=== PATIENT | male | born 1975 | race Caucasian/White ===

== ENCOUNTER → 2018-07-08 13:04 | Outpatient (CLI) | payer OTHER, SELFPAY ==
--- NOTE | 2018-07-08 | DI.MRI.S_ITS ---
PROCEDURE: MR ORBITS FACE NECK WO/W CON INDICATIONS: LEFT NECK AND LATERAL TONGUE PAIN TECHNIQUE: Sagittal/axial/coronal T1 spin echo and STIR. After the administration of contrast, axial/coronal/sagittal T1 fast spin echo with fat saturation through the neck. COMPARISON: None. FINDINGS: Image quality: Excellent. Lymph nodes: No enlarged nodes are seen throughout the neck. Vessels: Visualized vasculature appears normal, with nancy flow voids and enhancement. Neck spaces: In this patient with this given history, scrutiny is given to the left tongue. To the limits of this study, no masses or abnormal enhancement can be involving the tongue on either side. The oropharynx, nasopharynx and pharynx are unremarkable, without mucosal lesions seen. Vocal cords, false vocal cords, pyriform sinuses, epiglottis, vallecula, and all appear normal. Extramucosal spaces of the neck also appear unremarkable. Glands: The parotid glands appear normal. The submandibular glands are asymmetric, with the left side mildly prominent and the right side atrophic. Thyroid gland demonstrates no significant MRI abnormality. Miscellaneous: Visualized brain and orbits appear normal. Lung apices appear clear. Superficial soft tissues appear normal. Moderate mucosal thickening is seen within the left maxillary sinus. Minimal mucosal thickening is seen elsewhere within the paranasal sinuses. No abnormal fluid can be seen within the mastoid air cells. Incidental note is made of moderate leftward nasal septal deviation. Bones: Marrow has normal overall signal. IMPRESSION: No masses or abnormal enhancement can be seen involving the left tongue or elsewhere. Incidental note is made of: Moderate leftward nasal septal deviation Asymmetry of the submandibular glands Focal left maxillary sinus disease Dictated by: Braydon Marino M.D. on 07/08/2018 at 13:22 Approved by: Braydon Marino M.D. on 07/08/2018 at 13:27
== END ==
PROVIDERS: Visit Provider Internal Medicine
DX: M54.2 Cervicalgia (principal); K14.6 Glossodynia; J34.2 Deviated nasal septum; J32.0 Chronic maxillary sinusitis
CPT/HCPCS: 70543

== ENCOUNTER 2019-04-02 17:44 | Emergency (ER) | payer OTHER, SELFPAY ==
[2019-04-02 17:54] VITALS: BP 167/99; PULSE 74; RESP 18; TEMP 37.1; O2SAT 99; BMI 29.5
[2019-04-02] MEDS: LIDO 1%/SOD BICARB 8.4% (10ML) 10 ML SYRINGE INJ (18:40)
--- NOTE | 2019-04-02 18:56 | ED.WOUNDLAC ---
HPI - Wound/Laceration <GERRY Carroll - Last Filed: 04/02/19 19:13> General Chief Complaint: Wound/Laceration Stated Complaint: right hand injury/needs stitches Time Seen by Provider: 04/02/19 17:50 Source: patient Mode of arrival: Family Vehicle Limitations: no limitations History of Present Illness HPI narrative: 43-year-old male presents to the emergency department complaining of a laceration to his right 2nd finger, he states he was sweeping when his broom broke in half and lacerated his finger. He states he is up-to-date on his Tdap. He denies any other trauma, chest pain, shortness of breath, fevers, chills, exudate, uncontrollable bleeding, or other concerns. He is not he any blood thinners. Related Data Allergies Allergy/AdvReac Type Severity Reaction Status Date / Time typhoid vaccine Allergy Severe Hypertensio Verified 04/02/19 18:00 n ciprofloxacin [From Cipro] Allergy Intermediate Muscle Pain Verified 04/02/19 18:00 morphine Allergy Unknown Flushing Verified 04/02/19 18:00 Review of Systems <GERRY Carroll - Last Filed: 04/02/19 19:13> Review of Systems Narrative: REVIEW OF SYSTEMS: GENERAL: Denies fever or chills. HENT: Denies head trauma. EYE: Denies double vision or vision loss. CARDIOVASCULAR: Denies syncope. MUSCULOSKELETAL: Denies weakness, or deformities. INTEGUMENTARY: Complains of laceration, see HPI. NEURO: Denies numbness or tingling. Patient History <GERRY Carroll - Last Filed: 04/02/19 19:13> Social History Smoking Status: Never smoker alcohol intake frequency: 0-2 drinks per day Substance Use Type: does not use Exam <GERRY Carroll - Last Filed: 04/02/19 19:13> Narrative Exam Narrative: PHYSICAL EXAMINATION: GENERAL: Well groomed, alert, and cooperative. Answers questions promptly and appropriately. Vital signs noted. HENT: Normocephalic, atraumatic. RESPIRATORY: Normal respiratory rate, trachea midline, airway patent. No stridor, nasal flaring or accessory muscle use. MUSCULOSKELETAL: Patient has full range of motion of right 2nd finger including DIP and MIP joints against resistance. Normal gait and coordination. Equal tone and mass bilaterally. EXTREMITIES: CMS intact. Moves all extremities. SKIN: Warm, dry, soft, appropriate color for ethnicity. 3cm laceration to right 2rd finger tip. Small amount of subcutaneous tissue visualized. Bleeding controlled. No surrounding erythema, no exudate. Six sutures were placed. NEURO: Alert and Oriented X 3. Good coordination. PSYCH: Appropriate affect and mood. Initial Vital Signs Initial Vital Signs: Vital Signs Temperature 98.7 F 04/02/19 17:54 Pulse Rate 74 04/02/19 17:54 Respiratory Rate 18 04/02/19 17:54 Blood Pressure 167/99 H 04/02/19 17:54 Pulse Oximetry 99 04/02/19 17:54 <Rusty Maurer DO - Last Filed: 04/02/19 19:36> Initial Vital Signs Initial Vital Signs: Vital Signs Temperature 98.7 F 04/02/19 17:54 Pulse Rate 74 04/02/19 17:54 Respiratory Rate 18 04/02/19 17:54 Blood Pressure 167/99 H 04/02/19 17:54 Pulse Oximetry 99 04/02/19 17:54 Procedures <GERRY Carroll - Last Filed: 04/02/19 19:13> Laceration Repair Laceration 1: Site: upper extremity Side (If applicable): right Size (cm): 3 Description: linear Depth: simple, single layer Local Anesthetic: lidocaine 1% and with bicarb Amount of anesthesia used (mL): 2 Pre-repair: wound explored and irrigated extensively Skin layer closed with: nylon Size (cm): 3-0 and 5-0 Number of sutures: 6 Course <GERRY Carroll - Last Filed: 04/02/19 19:13> Course Course Narrative: Patient tolerated procedure well. Wound was dressed with bacitracin and gauze. Patient was educated about signs of infection, wound care, and when to return. Orders Ordered: Discontinued Medications Bacitracin (Bacitracin) 1 applic TOP NOW ONE Stop: 04/02/19 19:02 Last Admin: 04/02/19 19:00 Dose: 1 applic Documented by: BASIL Lidocaine/Sodium Bicarbonate (Buffered Lidocaine 5ml Syringe) 5 ml INJ NOW ONE Stop: 04/02/19 18:05 Last Admin: 04/02/19 18:26 Dose: Not Given Documented by: KAREEN Lidocaine/Sodium Bicarbonate (Buffered Lidocaine 10 Ml Syr) 10 ml INJ NOW ONE Stop: 04/02/19 18:14 Last Admin: 04/02/19 18:40 Dose: 10 ml Documented by: BASIL Vital Signs Vital signs: Vital Signs - 8 hr 04/02/19 17:54 04/02/19 19:23 Temperature 98.7 F Pulse Rate 74 66 Respiratory Rate 18 17 Blood Pressure 167/99 H 137/77 Pulse Oximetry 99 98 <Rusty Maurer DO - Last Filed: 04/02/19 19:36> Orders Ordered: Discontinued Medications Bacitracin (Bacitracin) 1 applic TOP NOW ONE Stop: 04/02/19 19:02 Last Admin: 04/02/19 19:00 Dose: 1 applic Documented by: BASIL Lidocaine/Sodium Bicarbonate (Buffered Lidocaine 5ml Syringe) 5 ml INJ NOW ONE Stop: 04/02/19 18:05 Last Admin: 04/02/19 18:26 Dose: Not Given Documented by: KAREEN Lidocaine/Sodium Bicarbonate (Buffered Lidocaine 10 Ml Syr) 10 ml INJ NOW ONE Stop: 04/02/19 18:14 Last Admin: 04/02/19 18:40 Dose: 10 ml Documented by: BASIL Vital Signs Vital signs: Vital Signs - 8 hr 04/02/19 17:54 04/02/19 19:23 Temperature 98.7 F Pulse Rate 74 66 Respiratory Rate 18 17 Blood Pressure 167/99 H 137/77 Pulse Oximetry 99 98 MDM - Wound/Laceration <GERRY Carroll - Last Filed: 04/02/19 19:13> Medical Records Attestation: I reviewed the patient's medical records. Lab Data Attestation: I reviewed the patient's lab results. MDM Narrative Medical decision making narrative: Simple laceration repair without concern for tendon involvement due to location, full range of motion, and equal strength in DIP and PIP joints. Patient was educated about wound care, he was instructed to return/follow-up with PCP for suture removal in 7 days. Wound was dressed appropriately. No concern for infection due to lack of surrounding erythema, lack of purulent discharge, and recent reported laceration. Patient was up-to-date on his Tdap. Discharge Plan Departure Patient Disposition: Home Clinical Impression: Laceration Discharge Date/Time: 04/02/19 19:24 Instructions: DI for Laceration Repair Activity Restrictions/Additional Instructions: Thank you for entrusting me with your care today. As discussed, I have placed 6 sutures in your finger, these can be removed in 7 to 9 days. Please keep the wound clean and leave the dressing in place for the next 24 hours, after that you may wash it gently with water. Do not soak your wound in any water such as washing dishes or a hot tub. Please watch for signs of infection such as increased swelling, purulent discharge, increased pain, fevers, or other concerns--if these occur, please be seen immediately at the walk-in clinic or emergency department. Return to the ER if you develop chest pain, shortness of breath, or other concerning symptoms.
[2019-04-02] MEDS: BACITRACIN OINT 0.9 GM PCKT 1 APPLIC TOP (19:00)
--- NOTE | 2019-04-02 19:14 | PC.NURSE ---
6 sutures placed by Alejo GARRETT, 2 steri strips placed by robert EDRN, along with telfa pad and tube gauze.
[2019-04-02 19:23] VITALS: BP 137/77; PULSE 66; RESP 17; O2SAT 98
== END 2019-04-02 19:24 | disposition home or self-care (01) ==
PROVIDERS: Emergency Provider Nurse Practitioner
DX: S61.210A Laceration without foreign body of right index finger without damage to nail, initial encounter (principal)
CPT/HCPCS: 12002; 99282; 99285

== ENCOUNTER 2019-04-06 21:56 | Emergency (ER) | payer OTHER, SELFPAY ==
[2019-04-06 22:06] VITALS: BP 142/92; PULSE 88; RESP 18; TEMP 36.6; O2SAT 100
--- NOTE | 2019-04-06 23:09 | ED_ITS ---
HPI - Wound/Laceration General Chief Complaint: Wound/Laceration Stated Complaint: probable infected finger Time Seen by Provider: 04/06/19 22:51 Source: patient Mode of arrival: Ambulatory Limitations: no limitations History of Present Illness HPI narrative: Patient is a 43-year-old male who presents with right index finger pain. He was seen and evaluated 4 days ago after laceration to his right index finger. He says he broke a broom on his finger was sort of a crush injury but mostly soft tissue. He does not think any bone was gotten. He was seen evaluated by his PCP today who prescribed him Keflex. He says he squeezed pus out of it his pain has intensified over the past few days. He has pain whenever he bends it. No fevers. Related Data Previous Rx's Medication Instructions Recorded hydrocodone-acetaminophen [[place]] 1 tab PO Q6H PRN #10 tab 04/06/19 ketorolac 10 mg PO Q6H PRN 15 Days tab 04/06/19 Allergies Allergy/AdvReac Type Severity Reaction Status Date / Time typhoid vaccine Allergy Severe Hypertensio Verified 04/02/19 18:00 n ciprofloxacin [From Cipro] Allergy Intermediate Muscle Pain Verified 04/02/19 18:00 morphine Allergy Unknown Flushing Verified 04/02/19 18:00 Review of Systems Review of Systems Narrative: GENERAL: Denies chills,fever HEENT: Denies throat pain RESPIRATORY: Denies dyspnea, cough, wheezing CARDIOVASCULAR: Denies chest pain, palpitations GASTROINTESTINAL: Denies nausea, vomiting MUSCULOSKELETAL: Denies extremity pain, injury SKIN: See HPI NEUROLOGIC: Denies weakness, dizziness, headache, numbness 8 point review of systems is negative except for those stated above and HPI Patient History Medical History Tension headache (Acute) Social History Smoking Status: Never smoker alcohol intake frequency: 0-2 drinks per day Substance Use Type: does not use Exam Initial Vital Signs Initial Vital Signs: Vital Signs Temperature 97.9 F 04/06/19 22:06 Pulse Rate 88 04/06/19 22:06 Respiratory Rate 18 04/06/19 22:06 Blood Pressure 142/92 H 04/06/19 22:06 Pulse Oximetry 100 04/06/19 22:06 GENERAL: Well-appearing, well-nourished and in no acute distress. CARDIOVASCULAR: peripheral pulses in tact, cap refill <2 sec RESPIRATORY: No respiratory distress, speaks in full sentences without difficulty EXTREMITIES: Normal range of motion, no clubbing or edema. Neurovascularly intact NEUROLOGICAL: Cranial nerves II through XII grossly intact. Normal gait and speech. SKIN: Right index finger sutures in place minimal surrounding erythema. Finger is slightly more swollen. Erythema is only around suture site no gross drainage or pus from it at this time. He has no streaking decreased range of motion due to pain. Course Orders Ordered: Discontinued Medications Hydrocodone Bitart/Acetaminophen (Vicodin Prepack) 1 bottle MISC SEEINSTR ONE Stop: 04/06/19 23:05 Last Admin: 04/06/19 23:21 Dose: 1 bottle Documented by: AXEL Ketorolac Tromethamine (Toradol) 30 mg IM NOW ONE Stop: 04/06/19 23:05 Last Admin: 04/06/19 23:21 Dose: 30 mg Documented by: AXEL Vital Signs Vital signs: Vital Signs - 8 hr 04/06/19 22:06 Temperature 97.9 F Pulse Rate 88 Respiratory Rate 18 Blood Pressure 142/92 H Pulse Oximetry 100 MDM - Wound/Laceration MDM Narrative Medical decision making narrative: The patient seems to be in significant amount of pain. Patient is offered digital Xray and digital block however at this time he declines bowl. He states that he normally does take Toradol for pain however [facility]. I have given him a shot of Toradol here in the ED and written prescription for Toradol and [place]. I have discussed warning signs with both he and of significant or worsening infection. I recommended close follow-up. I discussed all findings with the patient and , Education has been performed regarding treatment plan, diagnosis, warning signs and symptoms and all concerns have been addressed. Verbally agree with and understood all of the above. Discharge Plan Departure Patient Disposition: Home Clinical Impression: Cellulitis Qualifiers: Site of cellulitis: extremity Site of cellulitis of extremity: finger Laterality: right Qualified Code(s): L03.011 - Cellulitis of right finger Discharge Date/Time: 04/06/19 23:27 Instructions: DI for Cellulitis -- Adult Activity Restrictions/Additional Instructions: *You have been diagnosed with cellulitis right index finger *What to do: Continue to monitor for increased worsening redness, keep arm elevated as male light ice 20 30 minutes at a time. *Continue to take medications as directed Continue Keflex as previously prescribed Toradol 10 mg every 6 hours if needed for mild pain [place] 1-2 tablets every 6 hours if needed for severe pain *Follow up with your primary care provider in 2-3 days *Return to ER if you should have increasing redness, increasing pain, spreading of redness or any new, worsening or concerning symptoms Prescriptions: New ketorolac 10 mg tablet 10 mg PO Q6H PRN (Reason: pain) 15 Days RF: 0 hydrocodone-acetaminophen [[place]] 5-325 mg tablet 1 tab PO Q6H PRN (Reason: pain) Qty: 10 RF: 0
[2019-04-06] MEDS: KETOROLAC 60 MG/2 ML VIAL 30 MG IM (23:21)
[2019-04-06] MEDS: HYDROCODONE/ACET 5/325 PREPACK 1 BOTTLE MISC (23:21)
== END 2019-04-06 23:27 | disposition home or self-care (01) ==
PROVIDERS: Emergency Provider Emergency Medicine
DX: L03.011 Cellulitis of right finger (principal)
CPT/HCPCS: 96372; 99283; J1885

== ENCOUNTER → 2021-12-04 08:49 | Outpatient (CLI) | payer OTHER, SELFPAY ==
--- NOTE | 2021-12-04 | DI.US.S_ITS ---
PROCEDURE: US ABDOMEN LIMITED INDICATIONS: THROMBOCYTOPENIA TECHNIQUE: Real-time scanning was performed of the abdominal and retroperitoneal organs, with image documentation. COMPARISON: None. FINDINGS: Liver: Liver is normal in size and homogeneously increased in echotexture. Gallbladder: Within normal limits Biliary ducts: Intrahepatic bile ducts are non-dilated. Extrahepatic bile duct caliber measures 0.1 mm. Normal is 6-7 mm or less in diameter, or 10 mm or less post-cholecystectomy. Pancreas: Visualized portions of the pancreas are sonographically normal. Spleen: Spleen is normal in size , measuring 11.6 cm, and homogeneous in echotexture. IMPRESSION: 1. Hepatic steatosis. 2. No acute process. Dictated by: Marianne Coello M.D. on 12/04/2021 at 9:43 Transcribed by: TOMMY on 12/04/2021 at 9:44 Approved by: Marianne Coello M.D. on 12/04/2021 at 11:45
== END ==
PROVIDERS: Referring Provider Nurse Practitioner Family; Visit Provider Nurse Practitioner Family
DX: Z01.89 Encounter for other specified special examinations (principal); D69.6 Thrombocytopenia, unspecified; K76.0 Fatty (change of) liver, not elsewhere classified
CPT/HCPCS: 76705